=== PATIENT | female | born 1965 | race Caucasian/White ===

== ENCOUNTER 2017-06-13 08:35 | Emergency (ER) | payer OTHER, BC ==
[2017-06-13 08:39] VITALS: BMI 25.6
[2017-06-13 08:46] VITALS: O2SAT 98
[2017-06-13] MEDS ORDERED: Oxycodone/Acetaminophen 5/325 mg Tab PO ONE ×2 (09:16→16:16)
[2017-06-13] MEDS ORDERED: Oxycodone/Acetaminophen 5/325 mg Tab ONE ×2 (09:19→16:26)
--- NOTE | 2017-06-13 09:38 | ED PDOC ---
HPI: Trauma/Fall - HPI Time Seen by Provider: 06/13/17 09:05 Chief Complaint (Nursing): Upper Extremity Problem/Injury Chief Complaint (Provider): Fall Related Injury History Per: Patient History/Exam Limitations: no limitations Onset/Duration Of Symptoms: Mins (prior to arrival) Additional Complaint(s): Letitia is a 51 y/o female, with a previous medical history of a rotator cuff injury to the right shoulder, who presents to the ED for evaluation after tripping and falling over wire at work prior to arrival. She states that she tripped over some wire and fell on her right shoulder. Patient complains of severe pain and deformity of the right upper arm and loss of range of motion. She also sustained an injury to the back of her head, which caused her to be dazed and disoriented; however, she did not lose consciousness. Her left knee was injured as well, and she reports an abrasion and mild pain, but full range of motion. Patient denies chest pain, back pain, abdominal pain, or syncope. PMD: Dr. Nallely Reeves MD - Fall Fall:Prior To Injury: Tripped Past Medical History Reviewed: Historical Data, Nursing Documentation, Vital Signs Vital Signs: Last Vital Signs Temp 98.7 F 06/13/17 08:37 Pulse 67 06/13/17 08:37 Resp 18 06/13/17 08:37 BP 139/87 06/13/17 08:37 Pulse Ox 98 06/13/17 08:43 - Medical History PMH: No Chronic Diseases Other PMH: Right rotator cuff rupture - Surgical History Other surgeries: Right rotator cuff repair - Family History Family History: States: Unknown Family Hx - Home Medications Home Medications: Ambulatory Orders Medication Instructions Recorded Docusate Sodium [Colace] 100 mg PO BID #10 capsule 06/13/17 oxyCODONE/Acetaminophen [Percocet 1 ea PO Q6 PRN #15 tab 06/13/17 5/325 mg Tab] - Allergies Allergies/Adverse Reactions: Allergies Allergy/AdvReac Type Severity Reaction Status Date / Time No Known Allergies Allergy Verified 06/13/17 08:43 Review of Systems ROS Statement: Except As Marked, All Systems Reviewed And Found Negative Cardiovascular: Negative for: Chest Pain Gastrointestinal: Negative for: Abdominal Pain Musculoskeletal: Positive for: Shoulder Pain (right shoulder and upper arm - severe, can't move right shoulder), Leg Pain (knee - mild). Negative for: Back Pain Neurological: Positive for: Other (dazed and disoriented) Physical Exam - Reviewed Nursing Documentation Reviewed: Yes Vital Signs Reviewed: Yes - Physical Exam Appears: Positive for: Well, Non-toxic, No Acute Distress Head Exam: Positive for: ATRAUMATIC, NORMAL INSPECTION, NORMOCEPHALIC Skin: Positive for: Normal Color, Warm, Dry Eye Exam: Positive for: EOMI, Normal appearance, PERRL Neck: Positive for: Normal, Painless ROM, Supple Cardiovascular/Chest: Positive for: Regular Rate, Rhythm Respiratory: Positive for: CNT, Normal Breath Sounds Pulses-Dorsalis Pedis (L): 2+ Pulses-Dorsalis Pedis (R): 2+ Pulses-Radial (L): 2+ Pulses-Radial (R): 2+ Gastrointestinal/Abdominal: Positive for: Normal Exam, Bowel Sounds, Soft. Negative for: Tenderness Back: Positive for: Normal Inspection, Vertebral Tenderness. Negative for: L CVA Tenderness, R CVA Tenderness Extremity: Positive for: Capillary Refill (< 2 sec), Deformity (right humerus), Swelling (right humerus, NO swelling in knee or right shoulder), Other ( abrasion to patellar area). Negative for: Normal ROM (limited ROM in right shoulder) Neurologic/Psych: Positive for: Alert, Oriented. Negative for: Motor/Sensory Deficits (right hand) - Laboratory Results Result Diagrams: 06/13/17 09:40 06/13/17 09:40 - ECG O2 Sat by Pulse Oximetry: 98 (RA) Pulse Ox Interpretation: Normal Medical Decision Making Medical Decision Makinst Impression: arm and shoulder injury to right side, closed humerus fracture - no shoulder dislocation 2nd Impression: head injury - no cranial bleeding 3rd Impression: left knee injury - no fracture Initial Plan --CT head w/o contrast --BMP --PTT --Prothrombin Time --XR Knee 3 Views --Oxycodone --XR Humerus Right --Reevaluation Time: 11:17 XR R Humerus FINDINGS: BONES: There is an oblique fracture through the proximal diaphysis of the right humerus with the distal fracture fragment distracted proximally somewhat with valgus angulation. SOFT TISSUES: Normal. OTHER FINDINGS: None. IMPRESSION: Oblique fracture proximal right humerus with dislocation (addended) Time: 11:19 XR Knee FINDINGS: BONES: Normal. No fracture. JOINTS: Mild joint space narrowing is appreciate the medial femorotibial compartment as well as the patellofemoral articulation compatible with degenerative joint disease. JOINT EFFUSION: None. OTHER FINDINGS: None. IMPRESSION: Limited degenerative joint disease. No acute fracture or dislocation identified. Time: 11:47 CT HEAD FINDINGS: HEMORRHAGE: No intracranial hemorrhage. BRAIN: No mass effect or edema. No atrophy or chronic microvascular ischemic changes. VENTRICLES: Unremarkable. No hydrocephalus. CALVARIUM: Unremarkable. No displaced fracture identified. No suspicious lytic or blastic change. PARANASAL SINUSES: Limited multifocal ethmoid sinus disease. MASTOID AIR CELLS: Unremarkable as visualized. No inflammatory changes. OTHER FINDINGS: None. IMPRESSION: Unremarkable unenhanced head CT as discussed above. No fracture identified either. Incidental limited mucosal inflammatory changes scattered throughout various ethmoid air cells bilaterally. [address] Discussed the case with Dr Jo who recommends coaptation splint. SPlint placed by technology lab teacher. Presplint and postsplint exam performed and NV intact. Scribe Attestation: Documented by Luis Fernando Templeton, acting as a scribe for Dr. Elizabeth Hamm Provider Scribe Attestation: All medical record entries made by the Scribe were at my direction and personally dictated by me. I have reviewed the chart and agree that the record accurately reflects my personal performance of the history, physical exam, medical decision making, and the department course for this patient. I have also personally directed, reviewed, and agree with the discharge instructions and disposition. Disposition - Clinical Impression Clinical Impression: Fracture, humerus closed, Fracture of right humerus - Patient ED Disposition Is Patient to be Admitted: No Doctor Will See Patient In The: Office Counseled Patient/Family Regarding: Studies Performed, Diagnosis, Need For Followup - Disposition Referrals: Vinnie Jo MD [Staff Provider] - Disposition: Routine/Home Disposition Time: 14:38 Condition: GOOD Additional Instructions: Take pain medications as instructed. Carry splint until seen by orthopedist. Follow up with your orthopedist within 1 week. Prescriptions: Docusate Sodium [Colace] 100 mg PO BID #10 capsule oxyCODONE/Acetaminophen [Percocet 5/325 mg Tab] 1 ea PO Q6 PRN #15 tab PRN Reason: Pain, Severe (8-10) Instructions: Arm Fracture in Adults (ED), Splint Care (ED)
[2017-06-13 09:49] LABS: BASO # 0.1 K/uL (0.0-0.2); BASO % 0.8 % (0.0-2.0); EOS # 0.1 K/uL (0.0-0.7); EOS % 0.9 % (0.0-4.0); HEMATOCRIT 39.5 % (34.0-47.0); LYMPH # 4.4 K/uL (1.0-4.3); LYMPH % 33.9 % (20.0-40.0); MEAN CELL VOLUME 89.1 fl (81.0-99.0); MEAN CORPUSCULAR HEMOGLOBIN 29.2 pg (27.0-31.0); MEAN CORPUSCULAR HGB CONC 32.8 g/dL (33.0-37.0); MEAN PLATELET VOLUME 9.9 fl (7.2-11.7); MONO # 0.6 K/uL (0.0-0.8); MONO % 4.8 % (0.0-10.0); NEUT # 7.7 K/uL (1.8-7.0); NEUT % 59.6 % (50.0-75.0); NRBC % 0.2 % (0.0-0.0); RED CELL DISTRIBUTION WIDTH 14.1 % (11.5-14.5); WHITE BLOOD COUNT 12.9 K/uL (4.8-10.8)
[2017-06-13 10:11] LABS: BLOOD UREA NITROGEN 13 mg/dl (7-17); CARBON DIOXIDE 21 mmol/L (22-30); CHLORIDE 105 mmol/L (98-107); GFR AFRICAN-AMERICAN > 60; GLUCOSE,RANDOM 107 mg/dL (65-105); SODIUM 142 mmol/l (132-148)
[2017-06-13 11:10] VITALS: PULSE 78; RESP 19
--- NOTE | 2017-06-13 11:18 | RAD ---
PROCEDURE: Radiographs of the right humerus. HISTORY: right shoulder pain injury COMPARISON: None. FINDINGS: BONES: There is an oblique fracture through the proximal diaphysis of the right humerus with the distal fracture fragment distracted proximally somewhat with valgus angulation. SOFT TISSUES: Normal. OTHER FINDINGS: None. IMPRESSION: Oblique fracture proximal right radius. No dislocation.
--- NOTE | 2017-06-13 11:21 | RAD ---
PROCEDURE: Left Knee Radiographs. HISTORY: Pain. COMPARISON: None. FINDINGS: BONES: Normal. No fracture. JOINTS: Mild joint space narrowing is appreciate the medial femorotibial compartment as well as the patellofemoral articulation compatible with degenerative joint disease. JOINT EFFUSION: None. OTHER FINDINGS: None. IMPRESSION: Limited degenerative joint disease. No acute fracture or dislocation identified.
[2017-06-13 11:46] LABS: PARTIAL THROMBOPLASTIN TIME 25.4 Seconds (25.6-37.1)
--- NOTE | 2017-06-13 11:49 | CT ---
PROCEDURE: CT HEAD WITHOUT CONTRAST. HISTORY: head injury COMPARISON: None available. TECHNIQUE: Axial computed tomography images were obtained through the head/brain without intravenous contrast. Radiation dose: Total exam DLP = 857.57 mGy-cm. This CT exam was performed using one or more of the following dose reduction techniques: Automated exposure control, adjustment of the mA and/or kV according to patient size, and/or use of iterative reconstruction technique. FINDINGS: HEMORRHAGE: No intracranial hemorrhage. BRAIN: No mass effect or edema. No atrophy or chronic microvascular ischemic changes. VENTRICLES: Unremarkable. No hydrocephalus. CALVARIUM: Unremarkable. No displaced fracture identified. No suspicious lytic or blastic change. PARANASAL SINUSES: Limited multifocal ethmoid sinus disease. MASTOID AIR CELLS: Unremarkable as visualized. No inflammatory changes. OTHER FINDINGS: None. IMPRESSION: Unremarkable unenhanced head CT as discussed above. No fracture identified either. Incidental limited mucosal inflammatory changes scattered throughout various ethmoid air cells bilaterally.
[2017-06-13] MEDS ORDERED: HYDROmorphone 0.5 mg/0.5 ml ISec ONE (12:24)
[2017-06-13 16:50] VITALS: BP 128/78; TEMP 97.8
== END 2017-06-13 16:49 | disposition home or self-care (01) ==
LOC: H.ER 08:35
DX: S42.301A Unspecified fracture of shaft of humerus, right arm, initial encounter for closed fracture (principal); M17.12 Unilateral primary osteoarthritis, left knee; W01.0XXA Fall on same level from slipping, tripping and stumbling without subsequent striking against object, initial encounter
CPT/HCPCS: 70450; 73060; 73562; 80048; 85025; 85610; 85730; 96374; 96375; 99283; J1170; J2270